=== PATIENT | female | born 1965 | race Caucasian/White ===

== ENCOUNTER 2017-10-16 11:17 | Emergency (ER) | payer BC ==
[~2017-10-16] VITALS: Ht 152.4 cm; Wt 49.9 kg
[2017-10-16 11:19] VITALS: BP_SYST 140
[2017-10-16] MEDS ORDERED: ONDANSETRON HCL 4 MG/2 ML VIAL IVP ONE (11:30)
[2017-10-16] MEDS ORDERED: DIPHENHYDRAMINE INJ 50 MG/ML VIAL IVP ONE ×2 (11:30→12:15)
[2017-10-16 13:30] VITALS: BP_SYST 140
== END 2017-10-16 13:30 | disposition home or self-care (01) ==
LOC: SED 11:17
DX: G43.909 Migraine, unspecified, not intractable, without status migrainosus (principal)
CPT/HCPCS: 96374; 96375; 96376; 99284; J1200; J2405